=== PATIENT | male | born 1980 | race Caucasian/White ===

== ENCOUNTER 2022-05-10 07:49 | Outpatient (CLI) | payer OTHER, SELFPAY ==
--- NOTE | 2022-05-10 08:18 | ECG_ITS ---
Measurements Intervals Lee Rate: 65 P: 29 NM: 132 QRS: 9 QRSD: 107 T: 18 QT: 386 QTc: 404 Interpretive Statements SINUS RHYTHM POSSIBLE LEFT VENTRICULAR HYPERTROPHY MINIMAL Q WAVES- HIGH LATERAL LEADS BASELINE ARTIFACT- I, II, AVR, AVL BORDERLINE ECG NO PREVIOUS ECG AVAILABLE FOR COMPARISON Electronically Signed On 05-10-2022 9:18:21 CDT by Mirza oMnsivais D.O.
[2022-05-10 08:44] LABS: Hematocrit 44.8 % (42.0-52.0); Hemoglobin 14.8 g/dL (14.0-18.0)
== END 2022-05-10 07:50 | disposition home or self-care (01) ==
LOC: ANHSURGERY 07:54
PROVIDERS: Anesthesiology; Visit Provider Neurological Surgery
DX: M51.26 Other intervertebral disc displacement, lumbar region (principal); Z01.818 Encounter for other preprocedural examination; R94.31 Abnormal electrocardiogram [ECG] [EKG]
CPT/HCPCS: 36415; 85014; 85018; 86850; 86900; 86901; 93005

== ENCOUNTER 2022-05-15 01:23 | Day surgery (SDC) | payer OTHER, SELFPAY ==
[2022-05-04 10:17] VITALS: BMI 26.3
--- NOTE | 2022-05-04 10:21 | PC.NURSE ---
Report to the Outpatient Waiting Room, entrance under the green pavilion located off [facility], at time 0730 on date 05/15/22. Planned Procedure Time: 0930. Time changes happen often and if your time is changed the preop area will call you the afternoon before. - You and your visitor will be asked to self-screen and do not enter if you have any COVID symptoms. - Only one visitor is requested with a max of two and NO children visitors are allowed at this time. - The patient visitor may be requested to leave or wait in car when not with patient due to distancing restrictions. - A mask is optional within the hospital at this time. Patients may have clear liquids (water, carbonated beverages, clear teas, apple juice) until 3 hours prior to surgery with a maximum of 20 ounces. - No food from midnight until time of surgery Take the following medications with a SIP of water the morning of surgery: NONE DO NOT STOP ANY OF YOUR OTHER PRESCRIPTION MEDICATIONS PRIOR TO SURGERY?EXCEPT THE FOLLOWING Medications to discontinue per physician: N/A Date to take last dose: N/A Please no make-up, nail congolese, hairspray, perfume, deodorant, or body powder the day of surgery. No jewelry (including any body piercings) or valuables the day of surgery, leave them at home. Please take a shower or bath the night before, or the morning of, surgery with an antibacterial soap. Wear comfortable, loose fitting clothing. - Jewelry must be removed prior to entering the operating room. Rings and piercings that are not removed may be cut off. - The hospital will not accept responsibility for valuables. - Please leave all valuables, including medications, at home the day of surgery. If you are going home after surgery, a licensed hook up driver must drive you home. - NO public transportation without another adult if you receive anesthesia. - We recommend that an adult stay with you for 24 hours following discharge. - We also recommend that you do not drive, make important decision, drink alcoholic beverages, or take any drugs that were not prescribed by your health care provider for at least 24 hours after your discharge time. Follow any additional instructions given to you from your surgeon. If you or anyone in your household have experienced Covid symptoms in the past week, please notify your surgeon or the nurse liaison at the phone number below for possible testing. Telephone instructions given to PT - MARIUSZ BIRCH and asked if any additional questions and then verbalized understanding. Patient advised to call surgeon office or pre surgery nurse liaison [phone] if any additional questions.
[2022-05-15] VITALS (9 sets, daily range): BP systolic 123–145; BP diastolic 73–105; PULSE 56–76; RESP 12–18; TEMP 36–36.1; O2SAT 99–100
--- NOTE | ~2022-05-15 | XR_ITS ---
EXAMINATION: XR fluoroscopy no charge DATE: 05/15/2022 11:12 INDICATION: L5-S1 microdiscectomy TECHNIQUE: Single lateral fluoroscopic spot image of the lower lumbar spine was obtained during proce dure performed by Dr. Champion. Radiologist was not present for the imaging or procedure. The amount of fluoroscopy time used during this procedure was 0.1 minutes. COMPARISON: None. FINDINGS: The tips of the forceps or a pair of metallic probes project over the cephalad and caudal m argin of the L5 spinous process. Likely lap sponge markers likely at the operative bed projecting pos terior to the tip of the L5 spinous process. IMPRESSION: 1. Cross be utilized during neurosurgical procedure at the lower lumbar spine. See procedure note for further detail. Reviewed, dictated and finalized at location A.
[2022-05-15] MEDS: LACTATED RINGERS 1,000 ML 30 ML IV CONT ×2 (08:18→12:36)
--- NOTE | 2022-05-15 08:35 | WPDANESEPPF ---
Anes - Initial Pre Proc Eval Procedure: Operation Date: 05/15/22 09:30 Proposed Procedures p Right L5- S1 Microdiscectomy - Mariano Champion MD Date/Time: 05/15/22 08:35 Surgeon: Mariano Champion MD Pre Op Diagnosis: Rt L 5-S1 Herniated Disc Patient Data Age: 41 Gender: M Height: 1.88 m Weight: 95 kg Last Vital Signs Temp 36.0 C L 05/15/22 07:50 Pulse 64 05/15/22 07:50 Resp 18 05/15/22 07:50 BP 134/73 05/15/22 07:50 Pulse Ox 99 05/15/22 07:50 O2 Del Method Room Air 05/15/22 07:50 Allergies Allergy/AdvReac Type Severity Reaction Status Date / Time No Known Allergies Allergy Verified 05/04/22 10:16 Home Medications Medication Instructions Recorded Confirmed Type loratadine 10 mg tablet (Claritin) 10 mg PO DAILY PRN Allergy Symptoms 05/04/22 05/04/22 History ECG: Date of Service: 05/10/22 Procedure(s): CA 12 lead EKG Accession Number(s): [id number] cc: ~ ? Measurements Intervals? [place]? Rate: ? 65 ? P:? 29 ND: ? 132? QRS:? 9 QRSD: ? 107? T:? 18 QT: ? 386? QTc:? 404? Interpretive Statements SINUS RHYTHM POSSIBLE LEFT VENTRICULAR HYPERTROPHY MINIMAL Q WAVES- HIGH LATERAL LEADS BASELINE ARTIFACT- I, II, AVR, AVL BORDERLINE ECG NO PREVIOUS ECG AVAILABLE FOR COMPARISON Electronically Signed On 05-10-2022 9:18:21 CDT by Mirza Monsivais D.O. Patient hx anesthesia problems: none Family hx anesthesia problems: none Results Review: All pre-operative results and documents have been reviewed as part of the pre-operative evaluation. [facility] Past Medical History Medical History Allergies Migraines Surgical History Surgical History History of tonsillectomy Family History Family History Mother Breast cancer Social History Social History Smoking status: Current some day smoker Tobacco type: cigars Alcohol intake: current Alcohol use details: RARE Substance use: never Substance use type: does not use Lack of Transportation: No Lack of Food: Never True Current Housing: I Have Housing Concerned About Future Housing: No Difficulty Paying Gas/Electric Bills: No Difficulty Paying for Meds: No Currently Unemployed: No Education: Don't Know Living arrangements: with family Spiritual care concerns: No Anes - Eval Final PreProcedure Day of Procedure 05/15/22 08:35 Patient weight: overweight Heart: regular rate and rhythm Lungs: clear to auscultation and normal air movement Airway: Mallampati scale class II Neurological: alert and oriented Last oral intake: >/= 8 hours ASA classification: II Emergent: no Anesthetic plan: proceed Anesthesia type and monitoring: general ETT Results Review: All pre-operative results and documents have been reviewed as part of the pre-operative evaluation. Informed Consent: The patient's anesthetic plan and its attendant risks and benefits were discussed with the patient/family/POA. Questions were solicited and answers provided to the satisfaction of the patient/family/POA.
--- NOTE | 2022-05-15 09:21 | P.HP_ITS ---
H&P: HPI History of Present Illness Date/Time: 05/15/22 09:21 Chief Complaint: Back and right leg pain Narrative: Mr. Smith is a 41-year-old gentleman with the right L5-S1 herniated nucleus pulposus and right S1 radiculopathy presents for microscopic lumbar diskectomy on the right at L5-S1. He has occasional dermatomal numbness but no specific muscle group weakness. He is not having any bowel or bladder difficulty or other constitutional problems. He has not changed appreciably since we last saw him. Review of Systems Review of Systems: Patient denies shortness of breath, cough, fever, chills, nausea, vomiting, weight loss, weight gain, chest pain, dysuria. He has back and leg pain as above. His review of systems otherwise negative on 12 systems except as noted elsewhere. [facility] Past Medical History Medical History Allergies Migraines Surgical History Surgical History History of tonsillectomy Family History Family History Mother Breast cancer Social History Social History Smoking status: Current some day smoker Tobacco type: cigars Alcohol intake: current Alcohol use details: RARE Substance use: never Substance use type: does not use Lack of Transportation: No Lack of Food: Never True Current Housing: I Have Housing Concerned About Future Housing: No Difficulty Paying Gas/Electric Bills: No Difficulty Paying for Meds: No Currently Unemployed: No Education: Don't Know Living arrangements: with family Spiritual care concerns: No Meds Home Medications and Allergies Home Medications Medication Instructions Recorded Confirmed Type loratadine 10 mg tablet (Claritin) 10 mg PO DAILY PRN Allergy Symptoms 05/04/22 05/04/22 History Allergies Allergy/AdvReac Type Severity Reaction Status Date / Time No Known Allergies Allergy Verified 05/04/22 10:16 Vital Signs Vital Signs - 24 hr 05/15/22 07:50 Temperature 96.8 F L Pulse Rate 64 Respiratory Rate 18 Blood Pressure 134/73 Pulse Oximetry 99 Oxygen Delivery Room Air Exam Narrative: Strength is 5/5 in all muscle groups of the bilateral lower extremities. Sensation is intact to light touch throughout the lower extremities. Breathing is nonlabored. He speaks in complete sentences without difficulty. Regular rate and rhythm Assessment and Plan Assessment and plan (1) Lumbar disc herniation: Code(s): M51.26 - Other intervertebral disc displacement, lumbar region Status: Acute Assessment and Plan: Mr. Smith is a 41-year-old gentleman with a right S1 radiculopathy related to herniated disc on the right at L5-S1 who presents for microscopic lumbar diskectomy. I described to him that operation again, its risks, potential benefits, the operative and postoperative course in detail and answered all his questions personally. He indicates understanding and elects to proceed with that operation.
--- NOTE | 2022-05-15 09:24 | WPDHPUPDATE1 ---
History and Physical Update Update Date/Time: 05/15/22 09:24 History and Physical has been reviewed, including an updated exam of the patient. There are NO changes in the patient's condition. Risks, benefits, and alternatives have been discussed and questions answered. Patient agrees to proceed with procedure.
[2022-05-15] MEDS: ceFAZolin 2 GM/D5W 50 ML 2 GM/50 ML BAG IVPB (09:40)
[2022-05-15] MEDS: LIDO 1%/EPINEPHRINE 1:100,000 50 ML VIAL INFILTRATE (10:05)
--- NOTE | 2022-05-15 10:43 | P.OP_ITS ---
Procedure Note - Detailed Date of Procedure 05/15/22 Pre-op Diagnosis Rt L 5-S1 Herniated Disc Post-op Diagnosis Same Procedure Performed Right L5-S1 microscopic lumbar diskectomy Surgeon Mariano Champion MD Personal Protection Specialist [place] Anesthesia General Description of Procedure Patient was brought to the operating room in the supine position, was sedated, intubated and placed under general anesthesia in routine fashion. He was then turned into the prone position on a Louis frame. The area of operation on his back was examined, marked for incision, prepped and draped in routine sterile fashion. Incision was marked over the L5 and S1 spinous processes in the midline. This area was injected with 0.5% lidocaine with [id number] epinephrine. Intravenous antibiotics given prior to incision. Incision was made with a 10 blade scalpel down to the lumbodorsal fascia. A subperiosteal dissection of the muscle soft tissue away from spinous process and lamina at L5-S1 on the right was performed with a subperiosteal elevator and Bovie cautery. A verifying x-rays obtained to verify the level of operation. Midas Hi drill was used to perform a hemilaminectomy medial facetectomy. Under microscopy the yellow ligament was lifted removed piecemeal using Kerrison punches. The thecal sac was then retracted medially. The ligament was entered using 11 blade scalpel. An Aurelia curette, curved curette and Stout rongeur were used to push free and remove herniated disc from beneath the nerve. This was done until a Masha instrument could be placed above and below the nerve in out the foramen to confirm lack of compression. The wound was then copiously irrigated with bacitracin irrigation all bleeding stopped with bipolar and Bovie cautery and Gelfoam thrombin powder. The wound was then closed in layered fashion with 2-0 Vicryl interrupted sutures in the lumbodorsal fascia and Car's layer. 3-0 Vicryl buried interrupted sutures were placed in the dermis and the skin was closed with a running 4-0 Monocryl subcuticular stitch and dressed with Dermabond. The patient was allowed to wake up in the operating room and was taken to the recovery room in stable condition. There were no immediate complications of this operation. All counts were reported correct in the case. Blood loss was 25 cc. The patient is neurologically at his baseline postoperatively. CPT codes: 82361 Estimated Blood Loss 25 IV Fluids 1,000 Complications None Condition Stable Disposition PACU [facility] Billing Surgery - Charge Forward: Surgery Billing
--- NOTE | 2022-05-15 12:36 | SUR.PHASEII ---
PATIENT STATES HE FEELS DIZZY; DENIES NAUSEA. IV FLUIDS INFUSING.
--- NOTE | 2022-05-15 13:38 | SUR.PHASEII ---
PATIENT STATES HE IS STILL SOMEWHAT DIZZY. HAS H/O OCCASIONAL DIZZINESS. 2 LITERS LR GIVEN. PATIENT STATED HE WOULD LIKE TO GO HOME. ABLE TO WALK WITHOUT UNSTEADINESS.
== END 2022-05-15 13:46 | disposition home or self-care (01) ==
PROVIDERS: Visit Provider Neurological Surgery
PROC: 0QB00ZX Excision of Lumbar Vertebra, Open Approach, Diagnostic (ICD-10-PCS; CPT 63017; principal; 2022-05-15 09:30)
DX: M51.26 Other intervertebral disc displacement, lumbar region (principal); F17.290 Nicotine dependence, other tobacco product, uncomplicated
CPT/HCPCS: 63030; 36415; 85014; 85018; 86850; 86900; 86901; 93005; 99199; J0330; J0690; J1100; J1170; J2250; J2405; J2704; J3010; J7120

== ENCOUNTER 2022-08-06 15:41 | Outpatient (CLI) | payer OTHER, SELFPAY ==
--- NOTE | ~2022-08-06 | XR_ITS ---
EXAM: XR lumbar spine 2-3V DATE: 08/06/2022 15:59 HISTORY: Z98.890 - Other specified postprocedural states . COMPARISON: None available. FINDINGS: 5 nonrib-bearing lumbar-type vertebral bodies. Pedicles intact. 2 mm retrolisthesis at L5- S1, otherwise normal vertebral body alignment. Vertebral body heights preserved. Incidental note of m ild anterior wedge deformity at T12, presumed physiologic. Mild disc space narrowing at L4-5. Moderat e disc space narrowing at L5-S1. Moderate degenerative disc changes at T12-L1. Normal posterior eleme nts. No fracture or dislocation. Embolization coils project over the abdomen. IMPRESSION: Grade 1 retrolisthesis at L5-S1. Multilevel lumbar degenerative disc disease, moderate at T12-L1 and L5-S1. Reviewed, dictated and finalized at location K. IMPRESSION: Grade 1 retrolisthesis at L5-S1. Multilevel lumbar degenerative dis c disease, moderate at T12-L1 and L5-S1.
== END 2022-08-06 15:42 | disposition home or self-care (01) ==
LOC: ANHIMG 15:42
PROVIDERS: Visit Provider Neurological Surgery
DX: Z98.890 Other specified postprocedural states (principal); M51.37 Other intervertebral disc degeneration, lumbosacral region
CPT/HCPCS: 72100